=== PATIENT | female | born 1945 | race Caucasian/White ===

== ENCOUNTER 2017-06-09 17:10 | Emergency (ER) ==
[2017-06-09 17:17] VITALS: BP 146/85; TEMP 99.2; BMI 27.3
--- NOTE | 2017-06-09 17:57 | ED.PDOC ---
General ED Provider: Dr. SIA NELSON Chief Complaint: Knee Pain/Injury Stated Complaint: knee pain Time Seen by Physician: 17:11 (fall 1 day ago) Mode of Arrival: Walk-In Information Source: Patient Exam Limitations: No limitations Nursing and Triage Documentation Reviewed and Agree: Yes Review of Systems - Review Of Systems Constitutional: Reports: No symptoms Eyes: Reports: No symptoms Ears, Nose, Mouth, Throat: Reports: No symptoms Respiratory: Reports: No symptoms Cardiac: Reports: No symptoms GI: Reports: No symptoms : Reports: No symptoms Musculoskeletal: Reports: Joint pain (knee pain) Skin: Reports: No symptoms Neurological: Reports: No symptoms Endocrine: Reports: No symptoms Hematologic/Lymphatic: Reports: No symptoms All Other Systems: Reviewed and Negative Past Medical History - Past Medical History Previously Healthy: Yes Endocrine: Reports: None Cardiovascular: Reports: None Respiratory: Reports: None Hematological: Reports: None Gastrointestinal: Reports: None Genitourinary: Reports: None Neuro/Psych: Reports: None Musculoskeletal: Reports: None Cancer: Reports: None Last Menstrual Period: NA - Surgical History General Surgical History: Reports: None - Family History Family History: Reports: None - Social History Smoking Status: Current every day smoker Hx Substance Use: No Alcohol Screening: None - Immunizations Tetanus Shot up to Date: Yes Physical Exam - Physical Exam Appearance: Well-appearing, No pain distress, Well-nourished Eyes: NINA, EOMI, Conjunctiva clear ENT: Ears normal, Nose normal, Oropharynx normal Respiratory: Airway patent, Breath sounds clear, Breath sounds equal, Respirations nonlabored Cardiovascular: RRR, Pulses normal, No rub, No murmur GI/: Soft, Nontender, No masses, Bowel sounds normal, No Organomegaly Musculoskeletal: Limited ROM (left knee ) Skin: Warm, Dry, Normal color Neurological: Sensation intact, Motor intact, Reflexes intact, Cranial nerves intact, Alert, Oriented Psychiatric: Affect appropriate, Mood appropriate Interpretation - Radiology Interpretation Radiology Interpretation By: ED Physician Radiology Results: Negative Critical Care Note - Critical Care Note Total Time (mins): 0 Course - Course Orders, Labs, Meds: Orders Category Date Time Status KNEE, LEFT 4 VIEWS Stat RADS 06/09/17 17:27 Ordered Vital Signs: Temp Pulse Resp BP Pulse Ox 06/09/17 17:11 99.2 F 80 20 146/85 H 95 Departure - Departure Time of Disposition: 17:56 Disposition: HOME SELF-CARE Discharge Problem: Knee pain Knee pain, left Qualifiers: Chronicity: unspecified Qualifier Code: (M25.562) Pain in left knee Instructions: Knee Pain (ED) Condition: Good Pt referred to PMD for follow-up: Yes Additional Instructions: Please call your Family Physician as soon as possible to schedule a follow-up appointment. Allergies/Adverse Reactions: Allergies aspirin Adverse Reaction (Verified 06/09/17 17:21) codeine Adverse Reaction (Verified 06/09/17 17:21) Penicillins Adverse Reaction (Verified 06/09/17 17:21) Sulfa (Sulfonamide Antibiotics) Adverse Reaction (Verified 06/09/17 17:21) Home Medications: Ambulatory Orders Omeprazole [Prilosec] 20 mg PO DAILY 06/09/17 Thiamine HCl [Vitamin B-1] 50 mg PO DAILY 06/09/17
--- NOTE | 2017-06-10 07:56 | DI ---
EXAM: Four views of the left knee. History: Left knee pain and trauma. Findings: No acute fracture or dislocation. No abnormal calcifications or radiopaque foreign nerissa s. Joint spaces are preserved. Impression: No acute osseous abnormality.
== END 2017-06-09 18:05 | disposition home or self-care (01) ==
LOC: ED 17:10
DX: M25.562 Pain in left knee (principal); W19.XXXA Unspecified fall, initial encounter; F17.210 Nicotine dependence, cigarettes, uncomplicated
CPT/HCPCS: 99283

== ENCOUNTER 2018-05-07 13:27 | Inpatient (IN) ==
[2018-05-07] MEDS ORDERED: LACTATED RINGERS 1,000 ML IV STA (13:58)
[2018-05-07] MEDS ORDERED: DUONEB NEB STA (14:08)
--- NOTE | 2018-05-07 14:12 | ED.PDOC ---
General ED Provider: Dr. DANITA DEL ROSARIO Chief Complaint: Fever Stated Complaint: patient is a 73 year old female fro [place] who comes to the ER with a 3 day history of cough that is productive of yellow sputum, Running nose. Wheezing, shortness of breath and fever. States she used to smoke 3 ppd but now only smokes 1/2 ppd. Time Seen by Physician: 13:45 Mode of Arrival: Walk-In Information Source: Patient Exam Limitations: No limitations Nursing and Triage Documentation Reviewed and Agree: Yes Does patient meet sepsis criteria?: No System Inflammatory Response Syndrome: Not Applicable Sepsis Protocol: For patient's 13 years and over: Temp is 96.8 and below OR 101 and greater Pulse >90 BPM Resp >20/minute Acutely Altered Mental Status Are patient's symptoms suggestive of a new infection, such as: -Pneumonia -Skin, Soft Tissue -Endocarditis -UTI -Bone, Joint Infection -Implantable Device -Acute Abdominal Infection -Wound Infection -Meningitis -Blood Stream Catheter Infection -Unknown Review of Systems - Review Of Systems Constitutional: Reports: No symptoms Eyes: Reports: No symptoms Ears, Nose, Mouth, Throat: Reports: Ear pain, Nose discharge Respiratory: Reports: Cough, Short of air, Wheezing Cardiac: Reports: No symptoms GI: Reports: No symptoms : Reports: No symptoms Musculoskeletal: Reports: No symptoms Skin: Reports: No symptoms Neurological: Reports: No symptoms Endocrine: Reports: No symptoms Hematologic/Lymphatic: Reports: No symptoms All Other Systems: Reviewed and Negative Past Medical History - Past Medical History Previously Healthy: Yes Endocrine: Reports: None Cardiovascular: Reports: None Respiratory: Reports: Asthma, Bronchitis Hematological: Reports: None Gastrointestinal: Reports: None Genitourinary: Reports: CKD Neuro/Psych: Reports: TIA Musculoskeletal: Reports: None Cancer: Reports: None Last Menstrual Period: NA - Surgical History General Surgical History: Reports: Hysterectomy - Family History Family History: Reports: None - Social History Smoking Status: Current some day smoker Hx Substance Use: No Alcohol Screening: None - Immunizations Tetanus Shot up to Date: Yes Physical Exam - Physical Exam Appearance: Ill-appearing Ill-appearing: Moderate Pain Distress: Mild Eyes: NINA, EOMI, Conjunctiva clear ENT: Ears normal, Nose normal, Oropharynx normal Respiratory: Breath sounds diminished, Rhonchi, Wheezes Cardiovascular: RRR, Pulses normal, No rub, No murmur GI/: Soft, Nontender, No masses, Bowel sounds normal, No Organomegaly Musculoskeletal: Normal strength, ROM intact, No edema, No calf tenderness Skin: Warm, Dry, Normal color Neurological: Sensation intact, Motor intact, Cranial nerves intact, Alert, Oriented Psychiatric: Anxious Interpretation - Radiology Interpretation Radiology Interpretation By: Radiologist Radiology Results: Positive (Bronchial wall thickening. no consolidation.) Exam Interpreted: CXR Re-Evaluation - Re-Evaluation Time of Re-Evaluation: 16:10 Status: Improved, Worse (states now is wheezing ) Vital Signs Stable: Yes Appearance: NAD Lungs: Other (Air movement better but with Bilateral wheezing and Rhonchi) Physician Notification - Case Discussed Physician Notified: Dr Silvestre Time of Notification: 16:28 (OK to Admit to olguin.) Critical Care Note - Critical Care Note Total Time (mins): 0 Course - Course Hematology/Chemistry: 05/07/18 14:20 05/07/18 14:20 Orders, Labs, Meds: Lab Review 05/07/18 05/07/18 05/07/18 13:58 14:20 14:20 WBC 10.36 H RBC 4.87 Hgb 15.8 Hct 47.8 H MCV 98.2 MCH 32.4 H MCHC 33.1 RDW Coeff of Josy 14.1 Plt Count 199 Immature Gran % (Auto) 0.4 Neut % (Auto) 64.5 Lymph % (Auto) 25.8 Fannin % (Auto) 8.2 Eos % (Auto) 0.6 Baso % (Auto) 0.5 Immature Gran # (Auto) 0.0 Neut # (Auto) 6.7 Lymph # (Auto) 2.7 Fannin # (Auto) 0.9 Eos # (Auto) 0.1 Baso # (Auto) 0.1 Puncture Site R brachial O2 Saturation 87.0 L ABG pH 7.430 ABG pCO2 39.5 ABG pO2 51.0 L* ABG HCO3 26.2 H ABG Total CO2 27 ABG Base Excess 2 Ray Test + FiO2 % 21.0 Sodium 141 Potassium 4.4 Chloride 106 Carbon Dioxide 28 Anion Gap 11.4 BUN 14 Creatinine 0.90 Estimated GFR (MDRD) 62.00 BUN/Creatinine Ratio 15.55 Glucose 103 Lactic Acid Calcium 9.7 Total Bilirubin 0.7 AST 9 L ALT 10 L Alkaline Phosphatase 92 Total Protein 6.9 Albumin 3.3 L Globulin 3.6 Albumin/Globulin Ratio 0.92 Procalcitonin Urine Color Urine Clarity Urine pH Ur Specific [place] Urine Protein Urine Glucose (UA) Urine Ketones Urine Blood Urine Nitrite Urine Bilirubin Urine Urobilinogen Ur Leukocyte Esterase Urine Microscopic RBC Urine Microscopic WBC Ur Squamous Epith Cells Ur Renal Epithelial Cell Amorphous Sediment Urine Bacteria Hyaline Casts Urine Mucus 05/07/18 05/07/18 05/07/18 14:20 14:20 15:00 WBC RBC Hgb Hct MCV MCH MCHC RDW Coeff of Josy Plt Count Immature Gran % (Auto) Neut % (Auto) Lymph % (Auto) Fann[place] % (Auto) Eos % (Auto) Baso % (Auto) Immature Gran # (Auto) Neut # (Auto) Lymph # (Auto) Fannin # (Auto) Eos # (Auto) Baso # (Auto) Puncture Site O2 Saturation ABG pH ABG pCO2 ABG pO2 ABG HCO3 ABG Total CO2 ABG Base Excess Ray Test FiO2 % Sodium Potassium Chloride Carbon Dioxide Anion Gap BUN Creatinine Estimated GFR (MDRD) BUN/Creatinine Ratio Glucose Lactic Acid 6.7 Calcium Total Bilirubin AST ALT Alkaline Phosphatase Total Protein Albumin Globulin Albumin/Globulin Ratio Procalcitonin < 0.05 Urine Color Yellow Urine Clarity Clear Urine pH 5.5 Ur Specific [place] 1.020 Urine Protein Negative Urine Glucose (UA) Negative Urine Ketones Trace Urine Blood 2+ Urine Nitrite Negative Urine Bilirubin 1+ Urine Urobilinogen 1.0 Ur Leukocyte Esterase Negative Urine Microscopic RBC 5-10 Urine Microscopic WBC 0-2 Ur Squamous Epith Cells 0-2 Ur Renal Epithelial Cell 0-2 Amorphous Sediment Trace Urine Bacteria Trace Hyaline Casts 0-2 Urine Mucus Trace Orders Category Date Time Status ABG DRAW REQUEST Stat CARDIO 05/07/18 14:00 Completed NEBULIZER TREATMENT Routine CARDIO 05/07/18 16:36 Ordered NEBULIZER TREATMENT Stat CARDIO 05/07/18 14:08 Completed OXYGEN Routine CARDIO 05/07/18 16:29 Ordered ACTIVITY .Early Mobilization for VTE Prevention CARE 05/07/18 16:32 Ordered INTAKE & OUTPUT Q8HR CARE 05/07/18 16:30 Ordered VITAL SIGNS Q4HR CARE 05/07/18 16:32 Ordered REGULAR DIET DIETARY 05/07/18 Dinner Ordered ED APPLY O2 .ONCE EMERGENCY 05/07/18 13:58 Active ED WINDOW SHADE CUTTER AND MOUNTER APPLIED .ONCE EMERGENCY 05/07/18 13:58 Active ED IV/MEDIPORT/POWERPORT .ONCE EMERGENCY 05/07/18 14:13 Active ED VITAL SIGNS Q1HR EMERGENCY 05/07/18 13:58 Active ABG Stat LAB 05/07/18 13:58 Completed BASIC METABOLIC PANEL DAILY@0600 LAB 05/08/18 06:00 Ordered BASIC METABOLIC PANEL DAILY@0600 LAB 05/09/18 06:00 Ordered BLOOD CULTURE (ED ONLY) Stat LAB 05/07/18 14:20 Received CBC W/ AUTO DIFF DAILY@0600 LAB 05/08/18 06:00 Ordered CBC W/ AUTO DIFF DAILY@0600 LAB 05/09/18 06:00 Ordered CBC W/ AUTO DIFF Stat LAB 05/07/18 14:20 Completed COMPREHENSIVE METABOLIC PANEL Stat LAB 05/07/18 14:20 Completed LACTIC ACID Stat LAB 05/07/18 14:20 Completed PROCALCITONIN Stat LAB 05/07/18 14:20 Completed URINALYSIS C & S IF INDICATED Stat LAB 05/07/18 15:00 Completed 0.9 % Sodium Chloride [Saline Flush] MEDS 05/07/18 14:13 Ordered 1 syr IVF PRN PRN Acetaminophen [Tylenol] MEDS 05/07/18 16:29 Ordered 650 mg PO Q4H PRN Azithromycin Inj [Zithromax] 500 mg MEDS 05/07/18 16:07 Active 0.9 % Sodium Chloride [Sodium Chloride] 250 ml IV ONCE Azithromycin [Zithromax] MEDS 05/08/18 16:35 Ordered 250 mg PO DAILY Ceftriaxone Sodium [Rocephin] 1 gm MEDS 05/07/18 17:00 Ordered 0.9 % Sodium Chloride [Sodium Chloride] 50 ml IV DAILY Enoxaparin Sodium [Lovenox] MEDS 05/08/18 09:00 Ordered 40 mg SUBCUT DAILY Ipratropium/Albuterol Neb [Duoneb] MEDS 05/07/18 14:08 Discontinued 1 vial NEB ONCE STA Ipratropium/Albuterol Neb [Duoneb] MEDS 05/07/18 16:29 Ordered 1 vial NEB RTQ4H PRN Ipratropium/Albuterol Neb [Duoneb] MEDS 05/07/18 20:00 Ordered 1 vial NEB RTQID Methylprednisolone Sod Succ/Pf [Solu-Medrol 125 mg] MEDS 05/07/18 14:13 Discontinued 125 mg IVP ONCE STA Methylprednisolone Sod Succ/Pf [Solu-Medrol 125 mg] MEDS 05/07/18 21:00 Ordered 125 mg IVP Q8HR Ondansetron HCl/Pf [Zofran 4 mg/2 ml] MEDS 05/07/18 16:29 Ordered 4 mg IVP Q6H PRN Ringers Lactated Solution [Lactated Ringers] 1,000 ml MEDS 05/07/18 13:58 Active IV 100 mls/hr Sodium Chloride 0.9% [Sodium Chloride] 1,000 ml MEDS 05/07/18 16:30 Ordered IV 75 mls/hr RESUSCITATION STATUS Routine OTHERS 05/07/18 16:29 Ordered CHEST, 2 VIEWS PA & LAT Stat RADS 05/07/18 13:58 Completed Medications Generic Name Dose Route Start Last Admin Trade Name Freq PRN Reason Stop Dose Admin Acetaminophen 650 mg 05/07/18 16:29 Tylenol PO Q4H PRN Fever > 102 Albuterol/Ipratropium 1 vial 05/07/18 20:00 Duoneb NEB RTQID FRANCISCO Albuterol/Ipratropium 1 vial 05/07/18 16:29 Duoneb NEB RTQ4H PRN Wheezing Azithromycin 250 mg 05/08/18 16:35 Zithromax PO 05/11/18 09:01 DAILY FRANCISCO Enoxaparin Sodium 40 mg 05/08/18 09:00 Lovenox SUBCUT DAILY FRANCISCO Lactated Ringer's 1,000 mls @ 100 mls/hr 05/07/18 13:58 05/07/18 14:57 Lactated Ringers IV 05/07/18 23:57 100 mls/hr .Q10H STA Administration Azithromycin 500 mg/ Sodium 250 mls @ 125 mls/hr 05/07/18 16:07 05/07/18 16: 17 Chloride IV 05/07/18 18:06 125 mls/hr ONCE STA Administration Ceftriaxone Sodium 1 gm/ 50 mls @ 75 mls/hr 05/07/18 17:00 Sodium Chloride IV DAILY FRANCISCO Sodium Chloride 1,000 mls @ 75 mls/hr 05/07/18 16:30 Sodium Chloride IV .[id number] FRANCISCO Methylprednisolone Sodium Succinate 125 mg 05/07/18 21:00 Solu-Medrol 125 Mg IVP Q8HR FRANCISCO Non-Formulary Medication 20 mg 05/08/18 09:00 Lisinopril [Lisinopril] PO DAILY FRANCISCO Non-Formulary Medication 50 mg 05/08/18 09:00 Thiamine Hcl [Vitamin B-1] PO DAILY FRANCISCO Omeprazole 20 mg 05/08/18 09:00 Prilosec PO DAILY FRANCISCO Ondansetron HCl 4 mg 05/07/18 16:29 Zofran 4 Mg/2 Ml IVP Q6H PRN Nausea / Vomiting Sodium Chloride 1 syr 05/07/18 14:13 05/07/18 14:27 Saline Flush IVF 1 syr PRN PRN Administration To flush IV Discontinued Medications Generic Name Dose Route Start Last Admin Trade Name Freq PRN Reason Stop Dose Admin Albuterol/Ipratropium 1 vial 05/07/18 14:08 05/07/18 14:54 Duoneb NEB 05/07/18 14:09 1 vial ONCE STA Administration Methylprednisolone Sodium Succinate 125 mg 05/07/18 14:13 05/07/18 14:57 Solu-Medrol 125 Mg IVP 05/07/18 14:14 125 mg ONCE STA Administration Vital Signs: Temp Pulse Resp BP Pulse Ox 05/07/18 13:30 99.1 F 88 16 131/82 89 L Departure - Departure Time of Disposition: 16:07 Disposition: ADMITTED INPATIENT Discharge Problem: Hypoxia, Bronchitis Condition: Stable Pt referred to PMD for follow-up: Yes IPMP verified?: No Allergies/Adverse Reactions: Allergies aspirin Adverse Reaction (Verified 05/07/18 13:38) codeine Adverse Reaction (Verified 05/07/18 13:38) Penicillins Adverse Reaction (Verified 05/07/18 13:38) Sulfa (Sulfonamide Antibiotics) Adverse Reaction (Verified 05/07/18 13:38) Home Medications: Ambulatory Orders Omeprazole [Prilosec] 20 mg PO DAILY 06/09/17 Thiamine HCl [Vitamin B-1] 50 mg PO DAILY 06/09/17 Albuterol Sulfate [Proair Hfa] 2 inhaler IN DAILY 05/07/18 Lisinopril 20 mg PO DAILY 05/07/18
--- NOTE | 2018-05-07 14:27 | DI ---
EXAM: Two views of the chest. History: Cough. Findings: Heart size is normal. No focal consolidation. No appreciable pleural fluid and no pneumo thorax. Atherosclerotic vascular calcifications. There may be bronchial wall thickening. No acute osseous abnormalities. Chronic-appearing compression deformity within the upper thoracic spine. Impression: Possible bronchial wall thickening but no consolidated pneumonia.
[2018-05-07] MEDS: SOLU-MEDROL 125 MG IVP STA ×2 (14:28→14:57)
[2018-05-07] MEDS ORDERED: ZITHROMAX 500 MG in SODIUM CHLORIDE 250 ML IV STA (16:07)
[2018-05-07] MEDS ORDERED: ZOFRAN 4 MG/2 ML IVP PRN (16:29)
[2018-05-07] MEDS ORDERED: DUONEB NEB PRN (16:29)
[2018-05-07] MEDS ORDERED: NORCO 10-325 PO PRN (16:38)
[2018-05-07] MEDS ORDERED: ROCEPHIN 1 GM in SODIUM CHLORIDE 50 ML IV SCH (17:00)
[2018-05-07 17:39] VITALS: BMI 28.2
[2018-05-07] MEDS: NICODERM 14 MG TD SCH (18:17)
[2018-05-07] MEDS ORDERED: ROCEPHIN ONE (18:23)
[2018-05-07] MEDS: ROCEPHIN 1 GM in SODIUM CHLORIDE 50 ML IV SCH (18:26)
[2018-05-07] MEDS: DUONEB NEB SCH (20:35)
[2018-05-07] MEDS ORDERED: PRILOSEC PO STA (21:05)
[2018-05-07] MEDS: SOLU-MEDROL 125 MG IVP SCH (21:12)
[2018-05-07] MEDS: NEURONTIN PO SCH (21:12)
[2018-05-08] MEDS: SODIUM CHLORIDE 1,000 ML IV SCH ×2 (03:58→17:11)
[2018-05-08] MEDS: DUONEB NEB SCH ×4 (04:32→20:18)
[2018-05-08] MEDS: PRILOSEC PO SCH (06:24)
[2018-05-08] MEDS: SOLU-MEDROL 125 MG IVP SCH ×3 (06:24→20:17)
[2018-05-08] MEDS ORDERED: TORADOL IVP PRN (08:00)
[2018-05-08] MEDS: MUCINEX PO SCH ×2 (08:45→20:16)
[2018-05-08] MEDS: NEURONTIN PO SCH ×2 (08:45→20:17)
[2018-05-08] MEDS: THIAMINE PO SCH (08:46)
[2018-05-08] MEDS: ZESTRIL PO SCH (08:46)
[2018-05-08] MEDS: ZITHROMAX PO SCH (08:46)
[2018-05-08] MEDS: ROCEPHIN 1 GM in SODIUM CHLORIDE 50 ML IV SCH (08:48)
[2018-05-08] MEDS: LOVENOX SUBCUT SCH (08:52)
[2018-05-08] MEDS ORDERED: NON-FORMULARY MEDICATION (Lisinopril [Lisinopril] 20 MG) PO SCH (09:00)
[2018-05-08] MEDS ORDERED: PRILOSEC PO SCH (09:00)
[2018-05-08] MEDS ORDERED: THIAMINE HCL 50 MG PO SCH (09:00)
[2018-05-08] MEDS: NICODERM 14 MG TD SCH (09:36)
[2018-05-09] MEDS: DUONEB NEB SCH ×3 (04:33→14:03)
[2018-05-09] MEDS: SOLU-MEDROL 125 MG IVP SCH ×3 (05:35→20:44)
[2018-05-09] MEDS: PRILOSEC PO SCH (05:35)
[2018-05-09] MEDS: SODIUM CHLORIDE 1,000 ML IV SCH ×2 (05:35→19:26)
[2018-05-09] MEDS: ROCEPHIN 1 GM in SODIUM CHLORIDE 50 ML IV SCH (08:02)
[2018-05-09] MEDS: NEURONTIN PO SCH ×2 (08:02→20:44)
[2018-05-09] MEDS: ZITHROMAX PO SCH (08:03)
[2018-05-09] MEDS: THIAMINE PO SCH (08:03)
[2018-05-09] MEDS: ZESTRIL PO SCH (08:04)
[2018-05-09] MEDS: MUCINEX PO SCH ×2 (08:04→20:44)
[2018-05-09] MEDS: LOVENOX SUBCUT SCH (08:05)
[2018-05-09] MEDS: NICODERM 14 MG TD SCH (09:00)
--- NOTE | 2018-05-09 10:52 | DI ---
EXAM: Two views of the chest. History: Wheezing, short of breath Comparison: Chest radiograph 05/07/2018 Findings: Heart size is normal. No focal consolidation. No appreciable pleural fluid and no pneumo thorax. No acute osseous abnormalities. Atherosclerotic vascular calcifications. Impression: No acute cardiopulmonary process.
--- NOTE | 2018-05-09 13:18 | HP ---
DATE OF SERVICE: 05/07/18 CHIEF COMPLAINT/HISTORY OF PRESENT ILLNESS: This is a 73-year-old female who is an [place] resident came here to be with the patient's daughter. She has been having cough, congestion, shortness of breath getting yellow-green phlegm. As breathing was getting worse, the patient came to the emergency room, see by Dr. Mauro in the emergency room. Saturation was 89%. He did the chest x-ray which showed bilateral infiltrate and COPD. ABGs were done. The patient was hypoxic with pH 7.430, pc02 39.5, p02 51. After initial breathing treatment, the patient was still having some shortness of breath so the patient was admitted to the hospital with acute hypoxic respiratory failure, COPD exacerbation and bronchitis. REVIEW OF SYSTEMS: CONSTITUTIONAL: Weakness, tiredness. No fever, no chills. HEENT: Normal. ENDOCRINE: No weight gain; no weight loss. CVS: No chest pain. No PND, no orthopnea. Shortness of breath getting yellow- green phlegm. No PND, no orthopnea. RESPIRATORY: Cough and congestion. No hemoptysis. GI: No nausea, no vomiting. No abdominal pain. No melena. : No hematuria. No polyuria. MUSCULOSKELETAL: No joint swelling. PSYCHIATRIC: Not anxious. No depression. No suicidal thoughts. No homicidal thoughts. SKIN: Intact, no open lesions. PAST MEDICAL HISTORY: GERD Hypertension COPD Peripheral vascular disease Chronic kidney disease Asthma Bronchitis PAST SURGICAL HISTORY: Hysterectomy PERSONAL HISTORY: The patient smokes almost three packs a day. No drugs. No alcohol. FAMILY HISTORY: Significant for high blood pressure. MEDICATIONS: (HOME) Thiamine Omeprazole Lisinopril Albuterol ALLERGIES: ASPIRIN, CODEINE, SULFA, PENICILLIN (The patient states she has been told ever since she was a child that she should not take Penicillin. She does take Keflex however and it makes her stomach upset). PHYSICAL EXAMINATION: V/S: BP 131/82, respiratory rate 16, pulse 88, temperature 99.1, saturation 89. GENERAL: The patient is a sick looking lady lying in bed in mild respiratory distress. HEENT: Atraumatic, normocephalic. No scleral icterus. Mucosa dry. NECK: Supple. No JVD, no bruit. No lymphadenopathy. No thyromegaly. HEART: S1, S2 normal. No murmur. No cyanosis or clubbing. No ascites. LUNGS: Decreased with bilateral diffuse crackles with wheeze present. No rales or rhonchi. ABDOMEN: Soft, nontender. Bowel sounds are active. No CVA tenderness. No rigidity or guarding. EXTREMITIES: No pedal edema. No cyanosis or clubbing MUSCULOSKELETAL: Normal joints, no swelling. NEUROLOGIC: The patient is awake and alert. SKIN: Intact; no open lesions. LYMPHATIC: No lymph nodes palpable. LABS: White count 10.36, hemoglobin 15.8, hematocrit 47.8, platelet count 199. Sodium 141, potassium 4.1, chloride 106, bicarb 28, BUN 14, creatinine 0.90, glucose 103. ABG pH 7.430, pc02 39.5, p02 51.0. ASSESSMENT: 1. COPD EXACERBATION SECONDARY TO BRONCHITIS 2. HYPOXEMIC RESPIRATORY FAILURE 3. GERD 4. HYPERTENSION PLAN: 1. Admit patient to the regular floor 2. CBC, CMP today and daily 3. Cardiac enzymes and troponin 4. Will get D. Dimer 5. Rocephin 1 gm daily 6. Azithromycin 7. Duonebs 8. Solu-Medrol 9. Daily I & O TIME SPENT: MORE THAN 75 minutes MTDD
[2018-05-09] MEDS: PROAIR HFA IH SCH (13:47)
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
[2018-05-09] MEDS: TYLENOL PO PRN (19:26)
[2018-05-10] MEDS: DUONEB NEB SCH ×5 (01:53→20:00)
[2018-05-10] MEDS: SOLU-MEDROL 125 MG IVP SCH ×3 (04:38→20:43)
[2018-05-10] MEDS: PRILOSEC PO SCH (05:45)
[2018-05-10] MEDS: THIAMINE PO SCH (08:12)
[2018-05-10] MEDS: ROCEPHIN 1 GM in SODIUM CHLORIDE 50 ML IV SCH (08:12)
[2018-05-10] MEDS: ZITHROMAX PO SCH (08:13)
[2018-05-10] MEDS: ZESTRIL PO SCH (08:13)
[2018-05-10] MEDS: NEURONTIN PO SCH ×2 (08:13→20:26)
[2018-05-10] MEDS: PROAIR HFA IH SCH (08:13)
[2018-05-10] MEDS: MUCINEX PO SCH ×2 (08:13→21:14)
[2018-05-10] MEDS: NICODERM 14 MG TD SCH (08:14)
[2018-05-10] MEDS: LOVENOX SUBCUT SCH (08:14)
[2018-05-10] MEDS ORDERED: ROBITUSSIN SUGAR-FREE PO PRN (08:48)
[2018-05-10] MEDS: SODIUM CHLORIDE 1,000 ML IV SCH ×3 (09:00→22:08)
[2018-05-10] MEDS ORDERED: CARDIZEM INJ IVP STA ×2 (15:10→18:47)
[2018-05-10] MEDS ORDERED: LOVENOX SUBCUT STA (15:37)
[2018-05-10] MEDS: CARDIZEM PO SCH (20:26)
[2018-05-10] MEDS: ELIQUIS PO SCH (20:26)
[2018-05-11] MEDS: SOLU-MEDROL 125 MG IVP SCH ×3 (05:01→20:30)
[2018-05-11] MEDS: DUONEB NEB SCH ×4 (05:30→22:38)
[2018-05-11] MEDS: CARDIZEM PO SCH ×3 (06:07→20:31)
[2018-05-11] MEDS: PRILOSEC PO SCH (06:07)
[2018-05-11] MEDS: PROAIR HFA IH SCH (08:07)
[2018-05-11] MEDS: THIAMINE PO SCH (08:07)
[2018-05-11] MEDS: ZITHROMAX PO SCH (08:08)
[2018-05-11] MEDS: ZESTRIL PO SCH (08:08)
[2018-05-11] MEDS: ELIQUIS PO SCH ×2 (08:08→20:32)
[2018-05-11] MEDS: NEURONTIN PO SCH ×2 (08:08→20:31)
[2018-05-11] MEDS: KEFLEX PO SCH ×2 (08:08→10:04)
[2018-05-11] MEDS: MUCINEX PO SCH ×2 (08:08→20:31)
[2018-05-11] MEDS: CLEOCIN PO SCH ×3 (08:17→20:31)
[2018-05-11] MEDS: NICODERM 14 MG TD SCH (09:14)
[2018-05-11] MEDS: DEBROX OT SCH ×3 (09:38→22:57)
[2018-05-11] MEDS: SODIUM CHLORIDE 1,000 ML IV SCH (12:53)
[2018-05-11] MEDS: TYLENOL PO PRN (13:00)
[2018-05-12] MEDS: DUONEB NEB SCH ×2 (04:27→10:02)
[2018-05-12] MEDS: SOLU-MEDROL 125 MG IVP SCH ×2 (05:34→12:58)
[2018-05-12] MEDS: PRILOSEC PO SCH (05:35)
[2018-05-12] MEDS: CARDIZEM PO SCH ×2 (05:35→12:57)
[2018-05-12] MEDS: CLEOCIN PO SCH ×2 (05:35→12:57)
--- NOTE | 2018-05-12 08:25 | PN ---
DATE OF SERVICE: 05/09/18 SUBJECTIVE: The patient still coughing and congested and short of breath with the minimal exertion. No fever or chills. REVIEW OF SYSTEMS: CONSTITUTIONAL: No fever, no chills. HEENT: Normal. ENDOCRINE: No weight gain, no weight loss. CVS: No angina symptoms. No CHF symptoms. No palpitations. No atypical chest pain for CAD. Shortness of breath. No PND, no orthopnea. RESPIRATORY: Cough, no hemoptysis. GI: No nausea, no vomiting. No abdominal pain. : No hematuria. No polyuria. MUSCULOSKELETAL: No joint swelling. PSYCHIATRIC: Not anxious. No depression. No suicidal thoughts. No homicidal thoughts. SKIN: Intact. No rash. PHYSICAL EXAMINATION: V/S: Blood pressure 141/75, respiratory rate 20, heart rate 82, temperature 97.5 , saturation 95%. HEENT: Normocephalic, atraumatic. Mucosa dry. Pallor positive. No icterus. NECK: Supple. No JVD, no carotid bruit. No lymphadenopathy. LUNGS: Decreased and basilar crackles. Clear to auscultation. No rales or rhonchi. HEART: S1, S2 normal. No S3. No murmur, gallop or regurgitation. ABDOMEN: Soft, nontender. Bowel sounds active. No rigidity. No rebound or guarding. No CVA tenderness. EXTREMITIES: No cyanosis, clubbing or pedal edema. MUSCULOSKELETAL: No joint swelling. NEUROLOGIC: Awake, alert, oriented times three. No focal deficit. LYMPHATIC: No lymph nodes palpable. SKIN: Intact. LABS: WBC 16.27, hgb 13.7, hct 41.8, plt count 187, sodium 142, potassium 4.2, chloride 113, bicarb 25, BUN 18, creatinine 0.80 and glucose 150. ASSESSMENT: 1. COPD exacerbation secondary to the bronchitis 2. COPD moderate FEV1/FVC is 58 3. Osteoarthritis 4. Nicotine use PLAN: 1. Chest x-ray 2. DUO NEBS 3. Rocephin 1 gram daily 4. Will add extra Albuterol for the morning TIME SPENT: More than 35 minutes MTDD
[2018-05-12] MEDS: NEURONTIN PO SCH (08:29)
[2018-05-12] MEDS: THIAMINE PO SCH (08:29)
[2018-05-12] MEDS: MUCINEX PO SCH (08:29)
[2018-05-12] MEDS: ZESTRIL PO SCH (08:29)
[2018-05-12] MEDS: ELIQUIS PO SCH (08:30)
[2018-05-12 09:24] VITALS: BP 134/62; TEMP 97.8
[2018-05-12] MEDS: NICODERM 14 MG TD SCH (09:30)
[2018-05-12] MEDS: DEBROX OT SCH (09:30)
[2018-05-12] MEDS: PROAIR HFA IH SCH (09:51)
--- NOTE | 2018-05-12 11:01 | PN ---
DATE OF SERVICE: 05/10/18 SUBJECTIVE: The patient is still coughing and congested and not able to get phlegm. Short of breath with minimal exertion. PFT showed the FEV1/FV is 58 which was discussed with the patient, moderate COPD and cutting down on the smoking. REVIEW OF SYSTEMS: CONSTITUTIONAL: No fever, no chills. HEENT: Normal. ENDOCRINE: No weight gain, no weight loss. CVS: No angina symptoms. No CHF symptoms. No palpitations. No atypical chest pain for CAD. Shortness of breath. No PND, no orthopnea. RESPIRATORY: Cough, no hemoptysis. GI: No nausea, no vomiting. No abdominal pain. : No hematuria. No polyuria. MUSCULOSKELETAL: No joint swelling. PSYCHIATRIC: Not anxious. No depression. No suicidal thoughts. No homicidal thoughts. SKIN: Intact. No rash. PHYSICAL EXAMINATION: V/S: Blood pressure 102/49, respiratory rate 97, temperature 97.6 with saturation 52%. HEENT: Normocephalic, atraumatic. Mucosa dry. NECK: Supple. No JVD, no carotid bruit. No lymphadenopathy. LUNGS: Decreased and basilar crackles. No rales or rhonchi. HEART: S1, S2 normal. No S3. No murmur, gallop or regurgitation. ABDOMEN: Soft, nontender. Bowel sounds active. No rigidity. No rebound or guarding. No CVA tenderness. EXTREMITIES: No cyanosis, clubbing or pedal edema. MUSCULOSKELETAL: No joint swelling. NEUROLOGIC: Awake, alert, oriented times three. No focal deficit. LYMPHATIC: No lymph nodes palpable. SKIN: Intact. LABS: WBC 13.45, hgb 14.4, hct 43.3, plt count 222, sodium 147, potassium 4.1, chloride 110, bicarb 26, BUN 20, creatinine 0.90 and glucose 132. ASSESSMENT: 1. COPD exacerbation secondary to the bronchitis and early pneumonia 2. Hyperglycemia from the steroids 3. Hypertension 4. History of angina 5. History of stent 6. History of TIA 7. Nicotine use 8. Osteoarthritis PLAN: 1. Continue the Azithromycin 2. Lovenox 3. Rocephin 1 gram daily 4. Daily I&O's 5. DUO NEBS 6. Solu-Medrol ADDENDUM: Around 5:00pm nurse called and the patient went into atrial fibrillation with heart rate of 152. A dose of Cardizem IV push was given. Order for the D-Dimer and TSH levels were ordered. Will start the patient on Eliquis 5mg PO twice a day. Went and examined the patient and the patient was in the slight respiratory distress. No chest pain, PND or orthopnea. TIME SPENT: More than 35 minutes MTDD
--- NOTE | 2018-05-12 11:49 | PN ---
DATE OF SERVICE: 05/11/18 SUBJECTIVE: The patient had a episode of atrial fibrillation with rapid ventricular rate. A dose of Cardizem 10mg IV push was given. Right now the patient is converted back to the regular. The patient was started on the Eliquis with CHADS 2 VASC score is 4. Thromboembolism risk is very high. Eliquis and risk of the GI bleed and intracranial risk been discussed. Still coughing and congestion with no shortness of breath. REVIEW OF SYSTEMS: CONSTITUTIONAL: No fever, no chills. HEENT: Normal. ENDOCRINE: No weight gain, no weight loss. CVS: No angina symptoms. No CHF symptoms. No palpitations. No atypical chest pain for CAD. No shortness of breath. No PND, no orthopnea. RESPIRATORY: Cough and congestion, no hemoptysis. GI: No nausea, no vomiting. No abdominal pain. : No hematuria. No polyuria. MUSCULOSKELETAL: No joint swelling. PSYCHIATRIC: Not anxious. No depression. No suicidal thoughts. No homicidal thoughts. SKIN: Intact. No rash. PHYSICAL EXAMINATION: V/S: blood pressure 141/75, respiratory rate 20, heart rate 75, temperature 96.2 with saturation 97.8. Heart rate is now regular. HEENT: Normocephalic, atraumatic. Mucosa dry. NECK: Supple. No JVD, no carotid bruit. No lymphadenopathy. LUNGS: Decreased and some basilar crackles. Clear to auscultation. No rales or rhonchi. HEART: S1, S2 normal. No S3. No murmur, gallop or regurgitation. ABDOMEN: Soft, nontender. Bowel sounds active. No rigidity. No rebound or guarding. No CVA tenderness. EXTREMITIES: No cyanosis, clubbing or pedal edema. MUSCULOSKELETAL: No joint swelling. NEUROLOGIC: Awake, alert, oriented times three. No focal deficit. LYMPHATIC: No lymph nodes palpable. SKIN: Intact. LABS: WBC 8.17, hgb 13.7, hct 42.4, plt count 200, sodium 146, potassium 4.4, chloride 110, bicarb 29, BUN 21, creatinine 0.96 and glucose 124. TSH is 0.175. ASSESSMENT: 1. New onset atrial fibrillation, now is controlled and normal rhythm 2. COPD exacerbation secondary to bronchitis 3. Hyperthyroidism 4. Hypertension 5. GERD 6. Angina 7. Left and right leg stent PLAN: 1. Will do the Free T3 and Free and T4 2. Echocardiogram 3. Continue Cardizem and Eliquis 4. Decrease Solu-Medrol to 80 Q 8 hours 5. Change antibiotics to Keflex 500mg twice a day TIME SPENT: More than 35 minutes MTDD
--- NOTE | 2018-05-12 14:01 | ECHO2D ---
Date of Exam: 05/11/2018 Ordering Physician: NICK GIRALDO MD Room #: DCU -1 Reason for Echo: SHORT OF BREATH, ATRIAL FIBRILLATION, CHRONIC OBSTRUCTIVE LUNG DISEASE M-Mode Normal Adult Results LV Dimensions Normal Adult Results AoV Opening excursions >1.6 >1.6 LVEDD-base- 3.5-5.8 4.6 Ao root dimensions 2.0-3.7 3.3 LVESD-base- 3.1-4.6 L. Atrium dimensions 1.9-3.8 4.4 Post. Wall thickness 0.8-1.1 1.1 IV septum (thickness) 0.7-1.2 1.2 Post. Wall excursion 0.72-1.3 NORMAL Septal motion NORMAL Systolic motion R. Ventricular cavity 1.5-2.0 NORMAL LVEF 60% 72% Paradoxical septal wall motion NORMAL 2-D : ENLARGED LEFT ATRIAL CAVITY-NORMAL VALVES- NO THROMBUS- NO EFFUSION- NORMAL LEFT VENTRICULAR CAVITY SIZE. M-MODE: MV: NORMAL AV: NORMAL TV: NORMAL PV: CHAMBER SIZE: ENLARGED LEFT ATRIAL CAVITY WALL MOTION: NORMAL PERICARDIUM: NORMAL INTERPRETATION: 1. LEFT VENTRICULAR HYPERTROPHY BORDERLINE WITH ENLARGED LEFT ATRIAL CAVITY 2. NORMAL LEFT VENTRICULAR CONTRACTILITY 3. NORMAL VALVES MTDD
--- NOTE | 2018-05-13 11:06 | DS ---
DATE OF SERVICE: 05/12/18 FINAL DIAGNOSIS: 1. Acute hypoxemic respiratory failure 2. COPD exacerbation secondary to the bronchitis 3. New onset atrial fibrillation 4. Hypertension 5. Rapid atrial fibrillation with rate controlled, started on the Eliquis 6. Nicotine use 7. History of TIA 8. Peripheral vascular disease with status post stent 9. Hypothyroidism 10.PTSD 11.Borderline personality disorder 12.Hysterectomy DISCHARGE INSTRUCTIONS: Discharge the patient home. Followup in the [facility] within 3-4 days. MEDICATIONS AT DISCHARGE: Omeprazole Thiamine Lisinopril NEW PRESCRIPTIONS: Eliquis 5mg PO twice a day Cardizem 30mg Q 8 hours Clindamycin 300mg Q 8 hours Neurontin 300mg three times a day Prednisone 10mg twice a day Albuterol 3-4 times a day DIET INSTRUCTIONS: Cardiac and healthy ACTIVITY: As much as tolerated DISEASE SPECIFIC EDUCATION: Atrial fibrillation and risk of stroke Discussed anticoagulation and risk of GI bleed and intracranial bleed been discussed. HOSPITAL COURSE: Hoa Albarran 73 year old female came to the emergency room with cough and congestion and shortness of breath. She is a visitor from [place], came here to meet the daughter. ABG's showed the pH 7.403, pCo2 39.5, pO2 with 51. Respiratory failure the patient was admitted to the hospital and started on the Rocephin, Solu-Medrol and Azithromycin. By second day the patient was feeling some better but started having the fast heart rate and the atrial fibrillation. The patient was started on the Cardizem and given 10mg IV push and started on the 30mg Three times a day. Eliquis 5mg twice a day was given. Echocardiogram was obtained and showed the left ventricle hypertrophy, ejection fraction was normal. Meanwhile the patient is up and about walking and still going out to smoke. Meanwhile chest x-ray came normal. Pulmonary function test showed the FEV1/FEV as 56. As the patient been improving and coughing and congestion is better the patient being discharged home on new medication Eliquis and normal anticoagulant. CHADS 2 VASC score of the patient is 4. The patient being qualified for the anticoagulation treatment at this time. TIME SPENT: MORE THAN 65 MINUTES [facility]
== END 2018-05-12 13:00 | disposition home or self-care (01) | DRG 202 ==
LOC: ED 13:27 → SCU 16:31
PROVIDERS: ADMIT Emergency Medicine; ATTEND Emergency Medicine
DX: J40 Bronchitis, not specified as acute or chronic (principal); J96.91 Respiratory failure, unspecified with hypoxia; R06.02 Shortness of breath; K21.9 Gastro-esophageal reflux disease without esophagitis; R73.9 Hyperglycemia, unspecified; E03.9 Hypothyroidism, unspecified; F43.10 Post-traumatic stress disorder, unspecified; F60.3 Borderline personality disorder; M19.90 Unspecified osteoarthritis, unspecified site; G50.0 Trigeminal neuralgia; I10 Essential (primary) hypertension; I48.91 Unspecified atrial fibrillation; I20.9 Angina pectoris, unspecified; I73.9 Peripheral vascular disease, unspecified; Z72.0 Tobacco use; Z79.01 Long term (current) use of anticoagulants; Z86.73 Personal history of transient ischemic attack (TIA), and cerebral infarction without residual deficits
CPT/HCPCS: 36415; 80048; 80053; 81001; 82803; 83605; 84145; 84436; 84443; 85025; 85379; 87040; 87081; 93005; 93010; 94640; 96360; 96375; 99284

== ENCOUNTER 2018-05-24 09:03 | Outpatient (CLI) | END 2018-05-24 09:04 | disposition home or self-care (01) | LOC: LAB 09:03 | PROVIDERS: ATTEND Emergency Medicine | DX: I10 Essential (primary) hypertension (principal) | CPT/HCPCS: 36415; 84436; 84443; 84479 ==

== ENCOUNTER 2019-01-12 08:09 | Emergency (ER) | payer OTHER ==
[2019-01-12 08:23] VITALS: BP 139/74; TEMP 97; BMI 28.5
--- NOTE | 2019-01-12 10:43 | ED.PDOC ---
General ED Provider: Dr. JANELLE SMITH Chief Complaint: Foot Pain/Injury Stated Complaint: Tripped over her cats resulting fall down 2 steps injuring her rt foot. States she heard a snap of the top of her foot. Ambulates into departmennt with a limp. NO ecchymosis noted Time Seen by Physician: 09:10 Mode of Arrival: Wheelchair Information Source: Patient Exam Limitations: No limitations Primary Care Provider: RUY AHUMADA Nursing and Triage Documentation Reviewed and Agree: Yes Does patient meet sepsis criteria?: No System Inflammatory Response Syndrome: Not Applicable Sepsis Protocol: For patient's 13 years and over: Temp is 96.8 and below OR 101 and greater Pulse >90 BPM Resp >20/minute Acutely Altered Mental Status Are patient's symptoms suggestive of a new infection, such as: -Pneumonia -Skin, Soft Tissue -Endocarditis -UTI -Bone, Joint Infection -Implantable Device -Acute Abdominal Infection -Wound Infection -Meningitis -Blood Stream Catheter Infection -Unknown Musculoskeletal Complaint Exam - Ankle/Foot Complaint/Exam Location of Injury: Reports: Foot Mechanism of Injury: Reports: Trauma Onset/Duration: 1 hr Symptoms Are: Reports: Still present Onset of Pain: Reports: Immediate Initial Severity: Moderate Current Severity: Moderate Location: Reports: Discrete (Dorsum Rt foot-over 2nd mid metacarpal) Character: Reports: Sharp Alleviating: Reports: Rest Aggravating: Reports: Movement, Weight bearing Able to Bear Weight: Yes Associated Signs and Symptoms: Reports: Swelling. Denies: Redness, Bruising, Fever, Weakness, Numbness, Tingling Related History: Denies: Similar episode Gout Risk Factors: Reports: None Related Surgical History: Reports: None Lower Extremity Findings: Present: Swelling, Tenderness Achilles Tendon Abnormality: No Tenderness: Present: Midfoot, Metatarsals. Absent: Medial malleolus, Lateral malleolus, Heel, Achilles insertion Limited Range of Motion: Present: Dorsiflexion, Plantarflexion (painfur). Absent: Inversion, Eversion Ankle/Foot Picture: 1 - site of discomfort Differential Diagnosis: Cellulitis, Contusion, Closed Fracture, Strain Review of Systems - Review Of Systems Constitutional: Reports: No symptoms Eyes: Reports: No symptoms Ears, Nose, Mouth, Throat: Reports: No symptoms Respiratory: Reports: No symptoms Cardiac: Reports: No symptoms GI: Reports: No symptoms : Reports: No symptoms Musculoskeletal: Reports: No symptoms, Joint pain, Joint swelling Skin: Reports: No symptoms Neurological: Reports: No symptoms Endocrine: Reports: No symptoms Hematologic/Lymphatic: Reports: No symptoms All Other Systems: Reviewed and Negative Past Medical History - Past Medical History Previously Healthy: Yes Endocrine: Reports: None Cardiovascular: Reports: None Respiratory: Reports: Asthma, Bronchitis Hematological: Reports: None Gastrointestinal: Reports: None Genitourinary: Reports: CKD Neuro/Psych: Reports: TIA Musculoskeletal: Reports: None Cancer: Reports: None Last Menstrual Period: unknown - Surgical History General Surgical History: Reports: Hysterectomy - Family History Family History: Reports: None - Social History Smoking Status: Current every day smoker, Light tobacco smoker Hx Substance Use: No Alcohol Screening: None Physical Exam - Physical Exam Appearance: Well-appearing, No pain distress, Well-nourished Eyes: NINA, EOMI, Conjunctiva clear ENT: Ears normal, Nose normal, Oropharynx normal Respiratory: Airway patent, Breath sounds clear, Breath sounds equal, Respirations nonlabored Cardiovascular: RRR, Pulses normal, No rub, No murmur GI/: Soft, Nontender, No masses, Bowel sounds normal, No Organomegaly Musculoskeletal: Normal strength, ROM intact, No calf tenderness, Edema (WITH RT FOOT AND ANKLE TENDERNESS) Skin: Warm, Dry, Normal color Neurological: Sensation intact, Motor intact, Reflexes intact, Cranial nerves intact, Alert, Oriented Psychiatric: Affect appropriate, Mood appropriate Interpretation - Radiology Interpretation Radiology Interpretation By: ED Physician Radiology Results: No acute changes (Rt Foot) Critical Care Note - Critical Care Note Total Time (mins): 0 Course - Course Orders, Labs, Meds: Orders Category Date Time Status ACCUCHECK (ED) [ED ACCUCHECK ASSESSMENT] .ONCE EMERGENCY 01/12/19 09:23 Active EILEEN [ED EILEEN WRAP] .ONCE EMERGENCY 01/12/19 11:52 Active ED SPLINT APPLICATION .ONCE EMERGENCY 01/12/19 11:52 Active FOOT, RIGHT 3 VIEWS Stat RADS 01/12/19 09:24 Completed Vital Signs: Temp Pulse Resp BP Pulse Ox 01/12/19 08:10 97.0 F L 75 20 139/74 96 Departure - Departure Time of Disposition: 11:00 Disposition: HOME SELF-CARE Discharge Problem: Strain of right foot Instructions: Foot Contusion (ED), Ankle Strain (ED) Condition: Good Pt referred to PMD for follow-up: Yes ( 1 week) IPMP verified?: No Additional Instructions: Was Awaitng formal interpretation from Radiologist. Just advised due to computer internet problems unable to transmit study. EILEEN wrap and air cast splint Use cane for assistance with ambulation Follow up with PCP in 1 week Allergies/Adverse Reactions: Allergies aspirin Adverse Reaction (Verified 01/12/19 08:24) codeine Adverse Reaction (Verified 01/12/19 08:24) Penicillins Adverse Reaction (Verified 01/12/19 08:24) Sulfa (Sulfonamide Antibiotics) Adverse Reaction (Verified 01/12/19 08:24) bee stings Adverse Reaction (Uncoded 01/12/19 08:24) Home Medications: Ambulatory Orders Thiamine HCl [Vitamin B-1] 50 mg PO DAILY 06/09/17 Lisinopril 40 mg PO DAILY 05/07/18 Tiotropium Br/Olodaterol HCl [Stiolto Respimat Inhal [place]] 2 puff IH DAILY 05/26 Disposition Discussed With: Patient, Family
--- NOTE | 2019-01-12 13:32 | DI ---
EXAM: RIGHT FOOT, 3 VIEWS HISTORY: Injury, mid to distal first and second metatarsall FINDINGS: Bone and joint structures appear normal. No displaced fracture or joint dislocation is s een. There is no joint effusion. Soft tissues within normal limits. IMPRESSION: No fracture or dislocation identified.
== END 2019-01-12 12:13 | disposition home or self-care (01) ==
LOC: ED 08:09
DX: S96.911A Strain of unspecified muscle and tendon at ankle and foot level, right foot, initial encounter (principal); W10.9XXA Fall (on) (from) unspecified stairs and steps, initial encounter; F17.210 Nicotine dependence, cigarettes, uncomplicated
CPT/HCPCS: 82962; 99283

== ENCOUNTER 2019-03-15 16:40 | Outpatient (CLI) | END 2019-03-15 17:17 | disposition short-term general hospital (02) | LOC: AMBL 16:40 | PROVIDERS: ATTEND Internal Medicine | DX: R07.9 Chest pain, unspecified (principal); R10.84 Generalized abdominal pain; Z98.890 Other specified postprocedural states; K59.00 Constipation, unspecified ==